=== PATIENT | female | born 2000 | race Caucasian/White ===

== ENCOUNTER 2019-10-15 20:09 | Emergency (ER) | payer MEDICAID, SELFPAY ==
[2019-10-15 20:14] VITALS: BP 122/74; PULSE 74; RESP 18; TEMP 37; O2SAT 100; BMI 24.0
--- NOTE | 2019-10-15 20:32 | ED_ITS ---
HPI - Wound/Laceration General: Chief Complaint: Wound/Laceration Stated Complaint: LAC TO FOREHEAD Time Seen by Provider: 10/15/19 20:12 History of Present Illness: HPI narrative: Patient is a 18-year-old female who comes into the ED with laceration on her forehead. She states that she got laceration by her head hitting the edge of the trunk of her car. She does state she has a mild headache. She denies any Vision changes, loss of consciousness, nausea, vomiting. Denies chest pain, shortness of breath, abdominal pain, dysuria, hematuria, diarrhea, constipation, blood in the stool, weakness to extremities, numbness or tingling. Patient said she had her tetanus vaccination last year. Review of Systems General: Reports: 10 or more systems reviewed and unremarkable except in HPI and below PFSH ED PFSH: Statuses (acute, chronic, etc) shown below reflect problem list status as previously entered and may not be historically accurate Social History Smoking and tobacco status: never smoked Physical Exam Narrative: EXAM NARRATIVE: Patient is a 18-year-old female who appears in no acute distress or pain upon examination. She has a superficial laceration to her forehead with a small hematoma underneath it. Const: COMMON NORMALS: oriented x3 HENMT: COMMON NORMALS: normocephalic HEAD & SCALP: normocephalic; no Michelle's sign and no raccoon eyes MOUTH: oral and palatal mucosa normal THROAT: posterior oropharynx normal and uvula midline Neck/C-Spine: COMMON NORMALS: supple GENERAL: Yes normal visual inspection Resp: COMMON NORMALS: normal respiratory effort, no retractions, no use of accessory muscles and clear to auscultation bilaterally AUSCULTATION: clear to auscultation bilaterally Cardio: COMMON NORMALS: regular rate, regular rhythm, S1 normal heart sound, S2 normal heart sound, no gallops, no clicks, no murmurs and peripheral pulses 2+ throughout RATE: regular rate RHYTHM: regular rhythm HEART SOUNDS: S1 normal and S2 normal PERIPHERAL PULSES: pulses 2+ throughout GI: COMMON NORMALS: normal to inspection, nondistended, normoactive bowel sounds, soft to palpation, non-tender and no masses PALPATION: Yes soft : COMMON NORMALS: Yes no CVA tenderness BLADDER/KIDNEY EXAM: Yes no CVA tenderness Back/Pelvis: COMMON NORMALS: no CVA tenderness Neuro: COMMON NORMALS: oriented x3 and moves all extremities Skin: TRAUMA: laceration (2.5cm Laceration is on forehead. She aslo has a hematoma under lac.) linear, superficial, motor nerve function intact and sensation intact; not actively bleeding Procedures Laceration Laceration 1: Site: face (Forehead-Upper Left region) Size (cm): 2.5 Description: linear and clean Depth: simple, single layer Pre-repair: irrigated extensively (With normal saline) Size (cm): other (Dermabond and steri strip used to close wound.) Course ED course: I explained to the patient that the laceration could be closed with Dermabond or a couple stitches. I explained to the patient that stitches are better to decrease or reduce scarring. Patient decided she would rather have laceration closed with Dermabond. Vital Signs: Vital signs: Vital Signs Temperature 98.4 F 10/15/19 21:20 Pulse Rate 72 10/15/19 21:20 Respiratory Rate 16 10/15/19 21:20 Blood Pressure 120/76 10/15/19 21:20 Pulse Oximetry 98 10/15/19 21:20 Discharge Plan Discharge Patient Disposition: Home, Self-Care Clinical Impression: Laceration, Hematoma Condition: Stable Prescriptions: No Action buspirone 5 mg Tablet 5 mg PO DAILY RF: 0 omeprazole 40 mg Capsule,Delayed Release(Dr/Ec) 40 mg PO DAILY RF: 0 Discharge Orders: Discharge Order (Routine); Ordered 10/15/19 Ordered By: Papo Hall Referrals: Nghia Perez MD [Primary Care Provider] - Discharge Diet: Regular Discharge Activity: Resume usual activity Activity Restrictions/Additional Instructions: Keep laceration dry and clean for the next 48 hours. Then he can wash with warm soapy water. Follow-up with your primary care doctor in 7 days for reevaluation. Watch for signs of infection such as redness, warmth, pus like d rainage. Take Tylenol or ibuprofen as needed for headache or pain. Apply ice on hematoma on forehead to help reduce swelling. Discharge Date/Time: 10/15/19 21:21 Coding Level of Care Code ED [employer] for Pietro Pearce
--- NOTE | 2019-10-15 20:34 | PC.NURSE ---
assessment reviewed and agree
[2019-10-15 21:20] VITALS: BP 120/76; PULSE 72; RESP 16; TEMP 36.9; O2SAT 98
== END 2019-10-15 21:21 | disposition home or self-care (01) ==
LOC: ER 21:20
PROVIDERS: Emergency Provider Physician Assistant; Family Provider Family Medicine; PCP Family Medicine
DX: S01.81XA Laceration without foreign body of other part of head, initial encounter (principal); W22.09XA Striking against other stationary object, initial encounter
CPT/HCPCS: 12011; 99281; 99283